=== PATIENT | female | born 2000 | race Two or more races ===

== ENCOUNTER 2025-07-18 14:57 | Emergency (ER) | payer OTHER ==
[~2025-07-18] VITALS: Ht 167.6 cm; Wt 72.6 kg
[2025-07-18 15:26] VITALS: BP 131/87; O2SAT 100
== END 2025-07-18 16:42 | disposition home or self-care (01) ==
LOC: ER 15:36
DX: G89.11 Acute pain due to trauma (principal); M79.675 Pain in left toe(s); M79.674 Pain in right toe(s)